=== PATIENT | female | born 1955 | race African-American/Black ===

== ENCOUNTER 2018-08-25 00:58 | Emergency (ER) | payer SELFPAY ==
[~2018-08-25] VITALS: Ht 162.6 cm; Wt 102.1 kg
[2018-08-25 01:01] VITALS: Ht 162.6 cm; Wt 102.1 kg
[2018-08-25] MEDS ORDERED: IBUPROFEN 200 MG TAB PO ONE (02:00)
[2018-08-25] MEDS ORDERED: ACETAMINOPHEN 325 MG TAB PO ONE (02:00)
--- NOTE | 2018-08-25 02:29 | ERD ---
ER Documentation Chief Complaint Chief Complaint fell on the stairs. c/o rt shoulder and rt knee pain pain. denies ko. HPI 62-year-old female, previously healthy, presents to the emergency department, complaining of right shoulder pain after sustaining a fall from stairs at a rental place [facility]. The patient is visiting him from [place]. She denies direct head trauma, no precipitating dizziness or chest pain. The pain is dull, constant, 8/10, associated with decreased range of motion due to pain. ROS All systems reviewed and are negative except as per history of present illness. Medications Home Meds Active Scripts Ibuprofen* (Motrin*) 400 Mg Tab, 400 MG PO Q8, #20 TAB Prov:KAREN BECERRA MD 08/25/18 Acetaminophen* (Tylenol*) 325 Mg Tablet, 2 TAB PO Q6 PRN for PAIN AND OR ELEVATED TEMP, #20 TAB Prov:KAREN BECERRA MD 08/25/18 Allergies Allergies: Coded Allergies: Penicillins (Verified Allergy, Unknown, 08/25/18) Sulfa (Sulfonamide Antibiotics) (Verified Allergy, Unknown, 08/25/18) PMhx/Soc History of Surgery: No Anesthesia Reaction: No Hx Neurological Disorder: No Hx Respiratory Disorders: No Hx Cardiac Disorders: Yes (HTN) Hx Psychiatric Problems: No Hx Miscellaneous Medical Probl: Yes (Lichen Planus) Hx Alcohol Use: No Hx Substance Use: No Hx Tobacco Use: No Smoking Status: Never smoker FmHx Family History: diabetes; No coronary disease Physical Exam Vitals Vital Signs Date Temp Pulse Resp B/P (MAP) Pulse Ox O2 O2 Flow FiO2 Time Delivery Rate 08/25/18 98.2 86 20 170/80 99 01:01 (110) Physical Exam Patient alert, oriented, vital signs stable. HEAD: Normocephalic, atraumatic. EYES: PERRLA, EOMI, Sclera and conjunctiva appear normal. NOSE: Clear and patent nostrils. EARS: Canals clear, tympanic membranes WNL. MOUTH: normal lips and tongue, no oral lesions. THROAT: Normal oropharynx, no tonsillar exudates. NECK: Supple, No lymphadenopathy. Full ROM without pain or tenderness. HEART: RRR, no rubs, murmurs, clicks or gallops. LUNGS: Clear to auscultation. ABDOMEN: Soft, non-tender without masses or hepatosplenomegaly. EXTREMITIES: Right shoulder with significant edema and ecchymosis, no gross deformity, decreased range of motion due to pain. Distal neurovascular exam intact. BACK: Full ROM, no deformity, normal back exam NEURO: Cranial nerves grossly intact, no motor or sensory deficit SKIN: No rashes, no petechia. Results 24 hrs Current Medications Medications Dose Sig/[place] Start Time Status Last (Trade) Ordered Route PRN Stop Time Admin Dose Reason Admin 650 mg ONCE ONCE 08/25/18 DC 08/25/18 Acetaminophen PO 02:00 08/25/18 01:53 (Tylenol 02:01 Tab) Ibuprofen 400 mg ONCE ONCE 08/25/18 DC 08/25/18 (Motrin) PO 02:00 08/25/18 01:52 02:01 Procedures/MDM Differential diagnosis include but not limited to: Soft tissue contusion, sprain/strain, herniated disk, muscle spasm, fracture. Neurovascular exam grossly intact. no clinical findings suggestive of fracture, no acute deformity, no edema, no rashes. Physical examination and clinical presentation consistent most likely with right shoulder contusion secondary to a fall. During the ED course the patient remained stable, without complaints. Results and clinical impression discussed with patient who agrees with management. The patient is stable to be treated outpatient and will be discharged home with recommendations and close monitoring The patient was instructed to follow up with the primary care provider in the next 48h. If symptoms persist, worsen or new symptoms develop, then patient should return to the ED immediately. Instructions explained and given to patient with acknowledgment and demonstrated understanding. Disclaimer: Inadvertent spelling and grammatical errors are likely due to EHR/dictation software use and do not reflect on the overall quality of patient care. Also, please note that the electronic time recorded on this note does not necessarily reflect the actual time of the patient encounter. Departure Diagnosis: Primary Impression: Fall with significant injury Additional Impressions: Contusion of right shoulder Accidental fall on or from other stairs or steps Condition: Stable Patient Instructions: Shoulder Contusion Additional Instructions: Thank you very much for allowing us to participate in your care. Your health and safety is our top priority at [facility]. The evaluation in the emergency department has been done to rule out an acute emergency, chronic conditions like malignancy or other diseases have not been evaluated; therefore, you need to follow up with a primary care provider in the next 48h. If symptoms persist, worsen or new symptoms develop, then patient should return to the ED immediately. Call your primary care doctor TOMORROW for an appointment during the next 2-4 days and bring all the information provided. Have prescriptions filled and follow precisely the directions on the label. If the symptoms get worse and your provider is unavailable, return to the Emergency Department immediately. KAREN BECERRA MD Aug 25, 2018 02:29
[2018-08-25] MEDS ORDERED: ACET325T33 PO (02:31)
[2018-08-25] MEDS ORDERED: IBUP-1561 PO (02:31)
[2018-08-25 03:02] VITALS: BP 144/93; PULSE 69; RESP 18
== END 2018-08-25 02:59 | disposition home or self-care (01) ==
LOC: FTE 00:58
DX: S40.011A Contusion of right shoulder, initial encounter (principal); I10 Essential (primary) hypertension; W10.9XXA Fall (on) (from) unspecified stairs and steps, initial encounter; Y92.89 Other specified places as the place of occurrence of the external cause